=== PATIENT | female | born 1985 | race African-American/Black ===

== ENCOUNTER 2017-09-22 11:46 | Emergency (ER) | payer SELFPAY ==
[~2017-09-22] VITALS: Ht 167.6 cm; Wt 85.7 kg
[2017-09-22] MEDS ORDERED: IBUPROFEN 200 MG TAB PO ONE (13:00)
[2017-09-22] MEDS ORDERED: IBUPROFEN400 MG PO (15:07)
[2017-09-22 16:47] VITALS: BP 128/74
== END 2017-09-22 14:30 | disposition home or self-care (01) ==
LOC: FSED 11:46
DX: M79.671 Pain in right foot (principal); S93.491A Sprain of other ligament of right ankle, initial encounter; R26.2 Difficulty in walking, not elsewhere classified
CPT/HCPCS: 99283